=== PATIENT | female | born 1985 | race Caucasian/White ===

== ENCOUNTER 2023-09-21 08:16 | Day surgery (SDC) | payer OTHER ==
[2023-09-17 16:43] LABS: Hematocrit 41.2 % (34.9-44.5); Hemoglobin 14.3 g/dL (12.0-15.5); Mean Corpuscular HGB CONC 34.7 g/dL (32.0-36.0); Mean Corpuscular Hemoglobin 31.3 pg (27.0-33.0); Mean Corpuscular Volume 90.2 fl (81.6-98.3); Mean Platelet Volume 10.2 fl (7.4-10.4); Platelet Count 286 10x3/uL (150-450); Red Blood Cell (RBC) Count 4.57 10x6/uL (3.90-5.03); White Blood Cell (WBC) Count 9.5 10x3/uL (3.5-10.5)
[2023-09-17 16:57] LABS: BHCG - Serum Negative (NEGATIVE); Pregs Control Background? CLEAR/WHITE (CLR/WHITE); Pregs Control Bar Appear? YES (CONTROL BAR)
[2023-09-20 10:04] VITALS: BMI 37.3
== END 2023-09-21 15:25 | disposition critical access hospital (66) ==
LOC: CSHSDC 08:16
PROVIDERS: ATTEND Obstetrics & Gynecology
PROC: 0UT94ZZ Resection of Uterus, Percutaneous Endoscopic Approach (ICD-10-PCS; principal; 2023-09-21)
PROC: 0UT74ZZ Resection of Bilateral Fallopian Tubes, Percutaneous Endoscopic Approach (ICD-10-PCS; principal; 2023-09-21)
PROC: 0UT24ZZ Resection of Bilateral Ovaries, Percutaneous Endoscopic Approach (ICD-10-PCS; principal; 2023-09-21)
DX: N80.03 Adenomyosis of the uterus (principal); N72 Inflammatory disease of cervix uteri; I10 Essential (primary) hypertension; Z97.5 Presence of (intrauterine) contraceptive device; F17.210 Nicotine dependence, cigarettes, uncomplicated; Z79.899 Other long term (current) drug therapy
CPT/HCPCS: 84703; 85027; 86850; 86900; 86901; 88305; 88307; C9250; J0171; J0665; J1100; J1170; J1885; J2250; J2405; J2704; J3010; S0028